=== PATIENT | male | born 1960 | race African-American/Black ===

== ENCOUNTER → 2017-07-02 | Outpatient (CLI) | payer BC ==
--- NOTE | ~2017-07-02 | CR229 ---
[facility] A Service of [facility] RADIOLOGY TEXT RESULTS PATIENT: SABRINA RUIZ LOCATION: [facility] : 60 UNIT #: [id number] AGE: [address]: ZAIN DURAN APRN SEX: M ORDER DR: [id number] [facility] [address] [place], [place] [address] [id number] O MR#: [id number] Acc #: [id number] NAME: SABRINA RUIZ : 1960 SEX: M STUDY DATE/TIME: 07/02/2017 9:32 UNIT: [facility] ROOM: STUDY DESCRIPTION: CR Shoulder Min 2 View Lt Attending Physician: Zain Duran Referring Physician: Zain Duran Ordering Physician: Areli Baron Primary Care Physician: Zain Duran MEDICAL IMAGING REPORT This report is preliminary unless electronic signature is present EXAM Left shoulder 07/02. INDICATIONS Shoulder pain radiating down the arm for 4-5 months. No trauma. COMPARISON 2 views of the left shoulder are compared with 05/26/2008. FINDINGS No fracture or subluxation is seen. 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 No AC joint separation identified. 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 Otherwise negative shoulder. Dictated by... John Stafford Jr., M.D. THIS IS AN ELECTRONICALLY VERIFIED REPORT John Stafford Jr., M.D. at 07/02/2017 4:57 PM RLK/cody TD: 07/02/2017 16:44 JOB #: [id number] MEDICAL IMAGING REPORT Page 1 of 1 COPY
== END | disposition home or self-care (01) ==
LOC: CRAD 09:17
DX: R20.2 Paresthesia of skin (principal); M19.012 Primary osteoarthritis, left shoulder
CPT/HCPCS: 73030